=== PATIENT | female | born 1995 | race Caucasian/White ===

== ENCOUNTER → 2021-02-15 | Outpatient (CLI) | payer OTHER | LOC: SLEEP-COR 14:42 | DX: G47.00 Insomnia, unspecified (principal); R06.83 Snoring; K31.84 Gastroparesis; K21.9 Gastro-esophageal reflux disease without esophagitis; G43.909 Migraine, unspecified, not intractable, without status migrainosus; K59.00 Constipation, unspecified | CPT/HCPCS: 95810 ==